=== PATIENT | female | born 1965 | race Caucasian/White ===

== ENCOUNTER 2020-02-13 13:38 | Emergency (ER) | payer MEDICAID ==
[~2020-02-13] VITALS: Ht 170.2 cm; Wt 64.0 kg
[~2020-02-13 13:38] MED LIST: CYCL-259 PO
--- NOTE | 2020-02-13 13:55 | NUR ---
[facility] changed into a gown in [facility]. pt attached to vs monitors. alyssa deluca v, at for pt history and assessment. pt educated on er process and poc and verbalizes understanding. call light is within reach at this time.
--- NOTE | 2020-02-13 14:12 | NUR ---
xray at bs at this time to take pt.
[2020-02-13 15:03] LABS: BASOPHILS # (AUTO) 0.08 x10^3/uL (0-0.1); BASOPHILS % (AUTO) 1 % (0-1); EOSINOPHILS # (AUTO) 0.09 x10^3/uL (0-0.4); EOSINOPHILS % (AUTO) 1 % (1-7); LYMPHOCYTES # (AUTO) 2.76 x10^3/uL (1-3.4); LYMPHOCYTES % (AUTO) 42 % (22-44); MD NO; MEAN CORPUSCULAR HGB CONC 30.9 g/dL (32.4-35.8); MEAN PLATELET VOLUME 7.9 fL (7.4-10.4); MONOCYTES # (AUTO) 0.56 x10^3/uL (0.2-0.8); MONOCYTES % (AUTO) 9 % (2-9); NEUTROPHILS # (AUTO) 3.09 x10^3/uL (1.8-6.8); NEUTROPHILS % (AUTO) 47 % (42-75); PLATELET COUNT 495 x10^3/uL (130-400); RED BLOOD COUNT 3.77 x10^6/uL (3.82-5.3); RED CELL DISTRIBUTION WIDTH 19.7 % (9.6-15.2)
[2020-02-13 15:13] LABS: ALANINE AMINOTRANSFERASE 37 U/L (12-78); ALBUMIN 2.8 g/dL (3.4-5.0); ANION GAP 6 mmol/L (5-15); CALCIUM 7.9 mg/dL (8.5-10.1); CHLORIDE 106 mmol/L (98-107); CREATININE 0.71 mg/dL (0.55-1.02)
[2020-02-13 15:15] LABS: ALKALINE PHOSPHATASE 77 U/L (45-117); BILIRUBIN,TOTAL 0.2 mg/dL (0.2-1.0); TOTAL PROTEIN 6.4 g/dL (6.4-8.2)
--- NOTE | 2020-02-13 16:30 | NUR ---
PT PROVIDED WITH SNACKS PER PT REQUEST. PT DENIES ANY OTHER NEEDS AT THIS TIME AND HAS CALL LIGHT WITHIN REACH.
[2020-02-13] MEDS ORDERED: NEOSPORIN OINT. PKT 1 PACKET ONE (16:59)
[2020-02-13] MEDS ORDERED: HYDROcodone/APAP 5/325 TABLET PO ONE (17:00)
[2020-02-13] MEDS ORDERED: HYDROcodone/APAP 5/325 TABLET ONE (17:10)
--- NOTE | 2020-02-13 17:37 | NUR ---
PT D/C WITH D/C SUMMARY AND SCRIPTS. ALL QUESTIONS ANSWERED. PT AMBULATES WITH SLOW BUT STEADY GAIT TO REGISTRATION FOR D/C BACK TO [place] [facility] WITH [facility]. PT DENIES ANY OTHER NEEDS PERTAINING TO THIS VISIT AND REPORTS IMPROVMENT IN PAIN.
[2020-02-13 17:38] VITALS: BP 130/74
== END 2020-02-13 17:47 | disposition home or self-care (01) ==
LOC: ED 15:38
DX: M79.661 Pain in right lower leg (principal); L24.9 Irritant contact dermatitis, unspecified cause; D63.8 Anemia in other chronic diseases classified elsewhere; J44.9 Chronic obstructive pulmonary disease, unspecified; M81.0 Age-related osteoporosis without current pathological fracture; F17.200 Nicotine dependence, unspecified, uncomplicated; Z86.718 Personal history of other venous thrombosis and embolism
CPT/HCPCS: 29125; 36415; 80053; 85025; 99285

== ENCOUNTER 2020-03-23 19:11 | Emergency (ER) | payer MEDICAID ==
[~2020-03-23] VITALS: Ht 170.2 cm; Wt 63.0 kg
[2020-03-23 19:19] VITALS: BP 100/62
--- NOTE | 2020-03-23 19:59 | NUR ---
PT RESTING IN BED. DENIES ANY NEEDS OR CONCERNS AT THIS TIME. CALL LIGHT IN REACH.
[2020-03-23] MEDS ORDERED: SODIUM CHLORIDE FLUSH 10ML SYR IVF ONE (20:30)
[2020-03-23] MEDS ORDERED: ONDANSETRON 2MG/ML, 2ML IVPush ONE (20:30)
[2020-03-23 20:40] LABS: BASOPHILS # (AUTO) 0.06 x10^3/uL (0-0.1); BASOPHILS % (AUTO) 1 % (0-1); EOSINOPHILS # (AUTO) 0.15 x10^3/uL (0-0.4); EOSINOPHILS % (AUTO) 3 % (1-7); LYMPHOCYTES # (AUTO) 2.82 x10^3/uL (1-3.4); LYMPHOCYTES % (AUTO) 49 % (22-44); MD NO; MEAN CORPUSCULAR HEMOGLOBIN 21.9 pg (27.0-34.8); MEAN CORPUSCULAR HGB CONC 30.5 g/dL (32.4-35.8); MEAN CORPUSCULAR VOLUME 71.9 fL (80-100); MEAN PLATELET VOLUME 7.7 fL (7.4-10.4); MONOCYTES # (AUTO) 0.59 x10^3/uL (0.2-0.8); MONOCYTES % (AUTO) 10 % (2-9); NEUTROPHILS # (AUTO) 2.18 x10^3/uL (1.8-6.8); NEUTROPHILS % (AUTO) 38 % (42-75); PLATELET COUNT 463 x10^3/uL (130-400); RED BLOOD COUNT 4.06 x10^6/uL (3.82-5.3); RED CELL DISTRIBUTION WIDTH 20.2 % (9.6-15.2)
[2020-03-23] MEDS ORDERED: HYDROmorphone 1 MG/ML, 1ML INJ ONE (20:44)
[2020-03-23] MEDS ORDERED: ONDANSETRON 2MG/ML, 2ML ONE (20:44)
[2020-03-23] MEDS: HYDROmorphone 2 MG/ML, 1ML IVPush PRN ×2 (20:47→22:08)
--- NOTE | 2020-03-23 20:48 | NUR ---
PT TO MRI AT THIS TIME.
[2020-03-23 20:49] LABS: ALBUMIN 2.8 g/dL (3.4-5.0); ANION GAP 5 mmol/L (5-15); C-REACTIVE PROTEIN, QUANT 0.03 mg/dL (0.02-0.49); CALCIUM 8.4 mg/dL (8.5-10.1); CHLORIDE 107 mmol/L (98-107); CREATININE 0.65 mg/dL (0.55-1.02); INTERNATIONAL NORMALIZED RATIO 1.58 (0.93-1.1); PROTHROMBIN TIME 16.4 Seconds (9.6-11.5)
[2020-03-23] MEDS ORDERED: GADOTERATE 7.5 MMOL/15 ML SYR ONE (21:25)
== END 2020-03-24 00:01 | disposition home or self-care (01) ==
LOC: ED 23:51
DX: H54.61 Unqualified visual loss, right eye, normal vision left eye (principal); R51 Headache; J44.9 Chronic obstructive pulmonary disease, unspecified; K21.9 Gastro-esophageal reflux disease without esophagitis; M19.90 Unspecified osteoarthritis, unspecified site; E03.9 Hypothyroidism, unspecified; Z86.718 Personal history of other venous thrombosis and embolism
CPT/HCPCS: 36415; 70543; 70553; 80048; 82040; 85025; 85610; 85651; 85730; 86140; 96374; 96375; 96376; 99285; A9575; J1170; J2405

== ENCOUNTER 2020-04-26 15:12 | Emergency (ER) | payer MEDICAID ==
[~2020-04-26] VITALS: Ht 170.2 cm; Wt 63.0 kg
[2020-04-26] MEDS ORDERED: HYDROmorphone 1 MG/ML, 1ML INJ IM ONE (15:30)
[2020-04-26] MEDS ORDERED: ONDANSETRON ODT 4 MG PO ONE (15:30)
--- NOTE | 2020-04-26 15:35 | NUR ---
MARTHA STEPHEN, PT FROM [facility]. PT WITH GLF TODAY, +LOC PER PT. PT ON COUMADIN FOR HX DVT. PT DENIES LION, N/V. PT STATES SHE HAS BEEN HAVING "PROBLEMS" WITH HER EYES AND SEEING A SPECIALIST, SHE STATES HER VISION WENT BLURRY WHICH CAUSED HER FALL. PT TO CARD, BP, CONT PULSE. ERP IN TO [facility] PT
[2020-04-26] MEDS ORDERED: HYDROmorphone 2 MG/ML, 1ML ONE ×2 (15:37→15:43)
[2020-04-26] MEDS ORDERED: ONDANSETRON 2MG/ML, 2ML ONE (15:37)
[2020-04-26] MEDS ORDERED: ONDANSETRON ODT 4 MG ONE (15:46)
[2020-04-26 16:04] LABS: BASOPHILS % (AUTO) 0 % (0-1); EOSINOPHILS % (AUTO) 0 % (1-7); LYMPHOCYTES % (AUTO) 12 % (22-44); MEAN CORPUSCULAR HGB CONC 30.2 g/dL (32.4-35.8); MEAN PLATELET VOLUME 7.1 fL (7.4-10.4); MONOCYTES % (AUTO) 3 % (2-9); NEUTROPHILS % (AUTO) 85 % (42-75); PLATELET COUNT 619 x10^3/uL (130-400); RED BLOOD COUNT 4.17 x10^6/uL (3.82-5.3)
[2020-04-26 16:11] LABS: ALBUMIN 3.2 g/dL (3.4-5.0); ANION GAP 5 mmol/L (5-15); CALCIUM 8.5 mg/dL (8.5-10.1); CHLORIDE 106 mmol/L (98-107); CREATININE 0.69 mg/dL (0.55-1.02)
[2020-04-26 17:03] LABS: MD MORPH REVIEW ONLY
[2020-04-26 17:04] LABS: ANISOCYTOSIS 1+; MICROCYTOSIS 2+
[2020-04-26 17:05] LABS: HYPOCHROMIA 1+; OVALOCYTES 1+; POLYCHROMASIA 1+; TEAR DROPS 1+
[2020-04-26 17:06] LABS: <PLATELET ESTIMATE> INCREASED; <PLT MORPHOLOGY> NORMAL PLT MORPH
--- NOTE | 2020-04-26 17:17 | NUR ---
PT NOW REQUESTING TO SEE A PSYCH NURSE, STATES "I HAVE SO MANY BEHAVIOR ISSUES" :"I NEED TO TALK TO SOMEONE ABOUT IT" PT DENIES SI/HI. VSS, NO OTHER NEEDS AT THIS TIME
--- NOTE | 2020-04-26 18:12 | NUR ---
PT SATING 88%RA, REFUSING TO WEAR O2.
--- NOTE | 2020-04-26 18:54 | NUR ---
REPORT TO NOC RN
[2020-04-26 19:12] VITALS: BP 107/46
== END 2020-04-26 19:16 | disposition home or self-care (01) ==
LOC: ED 19:10
DX: S39.012A Strain of muscle, fascia and tendon of lower back, initial encounter (principal); S33.5XXA Sprain of ligaments of lumbar spine, initial encounter; R51.9 Headache, unspecified; J44.9 Chronic obstructive pulmonary disease, unspecified; K21.9 Gastro-esophageal reflux disease without esophagitis; M19.90 Unspecified osteoarthritis, unspecified site; E03.9 Hypothyroidism, unspecified; F17.210 Nicotine dependence, cigarettes, uncomplicated; Z86.718 Personal history of other venous thrombosis and embolism; W01.0XXA Fall on same level from slipping, tripping and stumbling without subsequent striking against object, initial encounter; Y93.89 Activity, other specified; Y92.098 Other place in other non-institutional residence as the place of occurrence of the external cause; Y99.8 Other external cause status
CPT/HCPCS: 36415; 70450; 72110; 72125; 80048; 82040; 85025; 93005; 96372; 99285; 99406; J1170; Q0162

== ENCOUNTER 2020-10-29 12:25 | Emergency (ER) | payer MEDICAID ==
[~2020-10-29] VITALS: Ht 170.2 cm; Wt 71.8 kg
[~2020-10-29 12:25] MED LIST changes: -CYCL-259 PO; +CYCL10TA2 PO
--- NOTE | 2020-10-29 13:24 | NUR ---
Pt to room from lobby
[2020-10-29 13:30] VITALS: BP 111/70
--- NOTE | 2020-10-29 13:34 | NUR ---
Pt sitting comfortably in bed watching TV, VSS, given warm blanket for comfort, NADN
[2020-10-29 14:34] LABS: INTERNATIONAL NORMALIZED RATIO 1.06 (0.93-1.1); PROTHROMBIN TIME 11.3 Seconds (9.6-11.5)
[2020-10-29 14:35] LABS: ALBUMIN 3.5 g/dL (3.4-5.0); CALCIUM 8.9 mg/dL (8.5-10.1); CREATININE 0.64 mg/dL (0.55-1.02)
[2020-10-29 14:43] LABS: ANION GAP 6 mmol/L (5-15); CHLORIDE 108 mmol/L (98-107)
[2020-10-29 14:58] LABS: BASOPHILS % (AUTO) 1 % (0-1); EOSINOPHILS % (AUTO) 1 % (1-7); LYMPHOCYTES % (AUTO) 26 % (22-44); MEAN CORPUSCULAR HEMOGLOBIN 31.7 pg (27.0-34.8); MEAN CORPUSCULAR HGB CONC 33.9 g/dL (32.4-35.8); MEAN PLATELET VOLUME 10.1 fL (7.4-10.4); MONOCYTES % (AUTO) 7 % (2-9); NEUTROPHILS % (AUTO) 66 % (42-75); PLATELET COUNT 324 x10^3/uL (130-400); RED BLOOD COUNT 4.81 x10^6/uL (3.82-5.3); RED CELL DISTRIBUTION WIDTH 15.3 % (9.6-15.2)
--- NOTE | 2020-10-29 15:19 | NUR ---
Pt resting comfortably in bed with eyes closed, MARILEEN
== END 2020-10-29 16:31 | disposition home or self-care (01) ==
LOC: ED 15:57
DX: M79.661 Pain in right lower leg (principal); J44.9 Chronic obstructive pulmonary disease, unspecified; Z86.718 Personal history of other venous thrombosis and embolism
CPT/HCPCS: 36415; 80048; 82040; 85025; 85610; 99284

== ENCOUNTER 2021-01-07 16:29 | Emergency (ER) | payer MEDICAID ==
[~2021-01-07] VITALS: Ht 167.6 cm; Wt 65.0 kg
[2021-01-07 16:39] VITALS: BP 100/71
--- NOTE | 2021-01-07 16:43 | NUR ---
PT BIBA. PER EMS PT IS HERE FOR BILAT LOWER EXT PAIN AND SWELLING. NO EDEMA NOTED UPON EVALUATION. PT IS IN RIGHT LEG BOOT D/T FRACTURE. PER PT SHE IS SUPPOSED TO HAVE SURGERY NEXT WEEK. PT RESTING IN [facility], MONITORING IN PLACE, [place] AT THIS TIME, [place].
[2021-01-07] MEDS ORDERED: HYDROcodone/APAP 5/325 TABLET ONE (18:29)
[2021-01-07] MEDS ORDERED: HYDROcodone/APAP 5/325 TABLET PO ONE (18:30)
== END 2021-01-07 18:39 | disposition home or self-care (01) ==
LOC: MERGE 16:29 → ED 17:57
DX: I87.2 Venous insufficiency (chronic) (peripheral) (principal); R60.0 Localized edema; M25.572 Pain in left ankle and joints of left foot
CPT/HCPCS: 93970; 99284